=== PATIENT | male | born 1965 ===

== ENCOUNTER 2019-11-28 13:56 | Observation (INO) | payer MEDICAID, OTHER ==
[2019-11-28] MEDS ORDERED: Morphine 4 MG/ML VIAL (1 ml) 4 MG/ML VIAL IV ONE (14:02)
--- NOTE | 2019-11-28 14:05 | ED ---
HPI Chest Pain - HPI Summary HPI Summary: 54 year old M presenting to [facility] via EMS with a chief complaint of constant central chest pain since 2 days ago. The patient rates the pain 7/10 in severity. Symptoms aggravated by nothing. Symptoms alleviated by nitro. Patient reports radiation of his pain to his left jaw and left arm this morning, diaphoresis last night, dizziness, and lightheadedness. Per EMS the patient's 12 lead EKG was unremarkable, he was given 1 L of fluid, and his pain was slightly relieved by 2 nitros. The patient has a history of 2 UT's and stents. He denies any history of DVT. The patient has a history of diabetes, hypertension, and high cholesterol. He has a family history of UT. Medication list reviewed. Allergy list reviewed. Home Medications Medication Instructions Recorded Confirmed Type Albuterol HFA INHALER* [Ventolin 2 puff INH Q6H PRN 11/28/19 11/28/19 History HFA Inhaler*] Aspirin EC TAB* [Ecotrin EC Low 81 mg PO DAILY 11/28/19 11/28/19 History Dose 81 MG*] Atorvastatin* [Lipitor*] 40 mg PO QPM 11/28/19 11/28/19 History Calcium Polycarbophil TAB* 625 mg PO BID 11/28/19 11/28/19 History [Fibercon TAB*] Clopidogrel TAB* [Plavix TAB*] 75 mg PO DAILY 11/28/19 11/28/19 History Insulin Glargine,Hum.rec.anlog 15 unit SUBCUT QPM 11/28/19 11/28/19 History [Lantus 100 units/ml 10 ml VIAL (*)] Metoprolol Tartrate TAB* 25 mg PO BID 11/28/19 11/28/19 History [Lopressor TAB*] Nitroglycerin TAB 0.4 MG* 0.4 mg SL Q5M PRN 11/28/19 11/28/19 History Omeprazole CAP (NF) [Prilosec CAP* 20 mg PO DAILY 11/28/19 11/28/19 History 20 MG] Tamsulosin CAP* [Flomax CAP*] 0.4 mg PO BEDTIME 11/28/19 11/28/19 History amLODIPine TAB* [Norvasc 5 mg TAB*] 2.5 mg PO QPM 11/28/19 11/28/19 History metFORMIN* [Glucophage 1000 MG TAB 1,000 mg PO BID 11/28/19 11/28/19 History *] - History of Current Complaint Hx Obtained From: Patient, EMS Onset/Duration: Started Days Ago Timing: Constant Current Severity: Moderate Pain Intensity: 7 Pain Scale Used: 0-10 Numeric Chest Pain Location: Discrete at: - Center Chest Pain Radiates: Yes Chest Pain Radiates To:: Arm - Left, Jaw - Left Aggravating Factor(s): Nothing Alleviating Factor(s): Medication - Nitro, Other: Associated Signs and Symptoms: Positive: Dizziness, Lightheadedness, Diaphoresis - Allergy/Home Medications Allergies/Adverse Reactions: Allergies Allergy/AdvReac Type Severity Reaction Status Date / Time Fish Containing Products Allergy Hives Verified 11/28/19 14:10 Home Medications: Home Medications Albuterol HFA INHALER* [Ventolin HFA Inhaler*] 2 puff INH Q6H PRN 11/28/19 [ History Confirmed 11/28/19] Aspirin EC TAB* [Ecotrin EC Low Dose 81 MG*] 81 mg PO DAILY 11/28/19 [History Confirmed 11/28/19] Atorvastatin* [Lipitor*] 40 mg PO QPM 11/28/19 [History Confirmed 11/28/19] Calcium Polycarbophil TAB* [Fibercon TAB*] 625 mg PO BID 11/28/19 [History Confirmed 11/28/19] Clopidogrel TAB* [Plavix TAB*] 75 mg PO DAILY 11/28/19 [History Confirmed ] Insulin Glargine,Hum.rec.anlog [Lantus 100 units/ml 10 ml VIAL (*)] 15 unit SUBCUT QPM 11/28/19 [History Confirmed 11/28/19] Metoprolol Tartrate TAB* [Lopressor TAB*] 25 mg PO BID 11/28/19 [History Confirmed 11/28/19] Nitroglycerin TAB 0.4 MG* 0.4 mg SL Q5M PRN 11/28/19 [History Confirmed 11/28/19 ] Omeprazole CAP (NF) [Prilosec CAP* 20 MG] 20 mg PO DAILY 11/28/19 [History Confirmed 11/28/19] Tamsulosin CAP* [Flomax CAP*] 0.4 mg PO BEDTIME 11/28/19 [History Confirmed ] amLODIPine TAB* [Norvasc 5 mg TAB*] 2.5 mg PO QPM 11/28/19 [History Confirmed ] metFORMIN* [Glucophage 1000 MG TAB *] 1,000 mg PO BID 11/28/19 [History Confirmed 11/28/19] PMH/Surg Hx/FS Hx/Imm Hx Endocrine/Hematology History: Reports: Hx Diabetes Cardiovascular History: Reports: Hx Hypercholesterolemia, Hx Hypertension, Hx Myocardial Infarction Denies: Hx Deep Vein Thrombosis - Surgical History Surgical History: Yes Surgery Procedure, Year, and Place: Stents Infectious Disease History: No Infectious Disease History: Denies: Traveled Outside the [place] in Last 30 Days - Family History Known Family History: Positive: Other - UT - Social History Alcohol Use: None Substance Use Type: Reports: None Smoking Status (MU): Light Every Day Tobacco Smoker Review of Systems Positive: Skin Diaphoresis Positive: Chest Pain Neurological/Mental Status: Other - Dizziness; lightheadedness All Other Systems Reviewed And Are Negative: Yes Physical Exam - Summary Physical Exam Summary: Constitutional: Well-developed, Well-nourished, Alert. (-) Distressed Skin: Warm, Dry HENT: Normocephalic; Atraumatic Eyes: Conjunctiva normal Neck: Musculoskeletal ROM normal neck. (-) JVD, (-) Stridor, (-) Tracheal deviation Cardio: Rhythm regular, rate normal, Heart sounds normal; Intact distal pulses; Radial pulses are 2+ and symmetric. (-) Murmur Pulmonary/Chest wall: Effort normal. (-) Respiratory distress, (-) Wheezes, (-) Rales Abd: Soft, (-) tenderness, (-) Distension, (-) Guarding, (-) Rebound Musculoskeletal: (-) Edema Lymph: (-) Cervical adenopathy Neuro: Alert, Oriented x3 Psych: Mood and affect Normal Triage Information Reviewed: Yes Vital Signs On Initial Exam: Initial Vitals Temp Pulse Resp BP Pulse Ox 97.8 F 60 17 107/62 97 11/28/19 13:57 11/28/19 13:57 11/28/19 13:57 11/28/19 13:57 11/28/19 13:57 Vital Signs Reviewed: Yes Procedures - Sedation Patient Received Moderate/Deep Sedation with Procedure: No Diagnostics - Vital Signs Vital Signs Temp Pulse Resp BP Pulse Ox 11/28/19 13:57 97.8 F 60 17 107/62 97 - Laboratory Result Diagrams: 11/28/19 14:09 11/28/19 14:09 Lab Statement: Any lab studies that have been ordered have been reviewed, and results considered in the medical decision making process. - Radiology Chest x-ray Radiology Interpretation Completed By: Radiologist Summary of Radiographic Findings: No active cardiopulmonary disease is noted. ED physician has reviewed this report. - EKG 14:28 Cardiac Rate: Bradycardia - 57 BPM EKG Rhythm: Sinus Bradycardia Summary of EKG Findings: Q-Waves in inferior leads; no ischemic changes. ED physician has reviewed and interpreted this EKG. Chest Pain Course/Dx - Course Course Of Treatment: Patient is here with chest pain. Patient typical and atypical features of chest pain. Patient's pain did get worse with exertion goes to left arm and jaw but has been present for 2 days. Patient has had 2 MIs in the past with a possible stress test in the past year but he cannot confirm that. Patient has an EKG which shows no changes from baseline. Patient had negative troponin. Patient has a well score of 0 for PE. Asians sore is not consistent with aortic dissection. The long term was called and they cannot find any records of a stress test in the past year. Given patient's heart score 4 in no known stress test in the past 12 months, patient was admitted to the hospital - Diagnoses Provider Diagnoses: Chest pain - Provider Notifications Discussed Care Of Patient With: Camilo Garcia Time Discussed With Above Provider: 15:40 Instructed by Provider To: Other - Patient's case was discussed with Dr. Garcia, Dr. Garcia accepts for admission Discharge ED - Sign-Out/Discharge Documenting (check all that apply): Patient Departure - Discharge Plan Condition: Stable Disposition: ADMITTED TO [facility] - Billing Disposition and Condition Condition: STABLE Disposition: Admitted to [facility] - Attestation Statements Document Initiated by Scribe: Yes Documenting Scribe: Danae Shankar Provider For Whom Scribe is Documenting (Include Credential): Winston Spann MD Scribe Attestation: Danae Mena, scribed for Winston Spann MD on at 2335. Scribe Documentation Reviewed: Yes Provider Attestation: The documentation as recorded by the scribe, Danae Ruiz and Dirk Shankar accurately reflects the service I personally performed and the decisions made by me, Winston Spann MD Status of Scribe Document: Viewed
[2019-11-28 14:28] LABS: ABS Eosinophils 0.1 10^3/ul (0-0.6); ABS Lymphocytes 1.3 10^3/ul (1.0-4.8); ABS Monocytes 0.5 10^3/ul (0-0.8); ABS Neutrophils 4.4 10^3/ul (1.5-7.7); Eosinophil % 2.2 %; Hematocrit 37 % (42-52); Hemoglobin 12.5 g/dL (14.0-18.0); Lymphocyte % 20.7 %; Mean Corpuscular HGB Conc 34 g/dL (31-36); Mean Corpuscular Hemoglobin 29 pg (27-31); Mean Corpuscular Volume 88 fL (80-94); Mean Platelet Volume 7.7 fL (7.4-10.4); Nucleated Red Blood Cells % 0.1; Platelet Count 167 10^3/uL (150-450); Red Blood Count 4.26 10^6 /uL (4.18-5.48); Red Cell Distribution Width 14 % (10-15); White Blood Count 6.5 10^3/uL (3.5-10.8)
[2019-11-28 15:04] LABS: Albumin 3.7 g/dL (3.2-5.2); Albumin/Globulin Ratio 1.5 (1-3); BUN/Creatinine Ratio 11.5 (8-20); Calcium 8.4 mg/dL (8.6-10.3); EGFR African American 99.1 (>60); EGFR Non-African American 81.9 (>60); Globulin 2.4 g/dL (2-4); Potassium 4.5 mmol/L (3.5-5.0); Total Bilirubin 0.7 mg/dL (0.2-1.0); Total Protein 6.1 g/dL (6.4-8.9)
[2019-11-28] MEDS ORDERED: Acetaminophen TAB* 325 MG PO PRN (16:11)
[2019-11-28] MEDS ORDERED: Nitroglycerin TAB 0.4 MG* 0.4 MG TAB SL PRN (16:13)
[2019-11-28] MEDS ORDERED: Albuterol HFA INHALER* 8 gm MDI INH PRN (16:13)
[2019-11-28] MEDS ORDERED: Dextrose 50% Syringe 50 ML* 25 GM/50 ML SYRINGE IV PUSH PRN (16:29)
[2019-11-28] MEDS ORDERED: Enoxaparin(*) 40 MG/0.4 ML SYR SUBCUT SCH (17:00)
[2019-11-28] MEDS ORDERED: amLODIPine TAB* 5 MG PO SCH (18:00)
[2019-11-28] MEDS ORDERED: Atorvastatin* 40 MG TAB PO SCH (18:00)
[2019-11-28] MEDS ORDERED: Insulin GLARGINE(*) 1 UNITS UNIT SUBCUT SCH (18:00)
--- NOTE | 2019-11-28 19:27 | HP ---
CC: Dr. Malcolm Diaz, [facility] * HISTORY AND PHYSICAL: DATE OF ADMISSION: 11/28/19 PRIMARY CARE PROVIDER: Dr. Malcolm Diaz, [facility]. ATTENDING PHYSICIAN: Dr. Camilo Garcia * (dictated by ERIS Savage). CHIEF COMPLAINT: Chest pain. HISTORY OF PRESENT ILLNESS: Mr. Pang is a 54-year-old male with a past medical history of coronary artery disease, status post 2 stents; diabetes, insulin- dependent; hypertension; hyperlipidemia, who presented to the ER today with complaints of chest pain that radiates to the left jaw and left arm. He reports that the pain is constant for the last 2 days, but worsened this morning after eating and walking to his room. He states he got to his room and had to sit down due to worsening chest pain. He has been given nitro and morphine both of which helped some. He rates this pain as a 6/10 currently. He states that his pain is nonpleuritic, not associated with deep breathing or palpation. He reports nausea last night without emesis, which has since subsided. Incidentally, he does have a history of swallowing foreign bodies, last episode was 6 to 7 months ago. Calculated HEART score is 4. He denies cough, shortness of breath, diaphoresis. He has some mild abdominal pain which is constant and he reports is due to hernia. Denies nausea, vomiting, diarrhea, myalgias, arthralgias. In the ER, the patient received a full workup, has a mild normocytic anemia, CMP shows 129 glucose, calcium 8.4. EKG shows rate of 57 with evidence of an old infarct in the inferior leads, flat T-wave in lead III and aVF. No ST depression or elevation. No previous EKG to compare to. Chest x-ray was unremarkable. The hospitalist team was asked to evaluate the patient for admission. PAST MEDICAL HISTORY: 1. Coronary artery disease, status post NC x2, stenting x2. 2. Diabetes mellitus, insulin-dependent. 3. Hypertension. 4. Hyperlipidemia. 5. GERD. 6. BPH. PAST SURGICAL HISTORY: Cardiac stent x2, appendectomy, multiple foreign body removals, colostomy with reversal. HOME MEDICATIONS: 1. Albuterol HFA inhaler 2 puffs inhalation q.6 hours p.r.n. 2. Amlodipine 2.5 mg p.o. daily. 3. Aspirin 81 mg p.o. daily. 4. Atorvastatin 40 mg p.o. at bedtime. 5. Calcium polycarbophil 625 mg p.o. b.i.d. 6. Clopidogrel 75 mg p.o. daily. 7. Insulin glargine 15 units subcu at bedtime. 8. Metformin 1000 mg p.o. b.i.d. 9. Metoprolol tartrate 25 mg p.o. b.i.d. 10. Nitroglycerin 0.4 mg sublingual q.5 minutes p.r.n. 11. Omeprazole 20 mg p.o. daily. 12. Tamsulosin 0.4 mg p.o. at bedtime. DRUG ALLERGIES: FISH. FAMILY HISTORY: Mom and maternal grandmother had MIs. Father from jaw cancer. No family history of CVA, diabetes. SOCIAL HISTORY: The patient is a current everyday smoker. He has smoked 40- pack years. He does not use alcohol or illicit drugs. He is not . He has no children. He currently is a prisoner at [facility]. In the event that he is unable to make his own medical decisions, he has appointed his sister, Jeimy Dasilva to be his surrogate decision maker. REVIEW OF SYSTEMS: A 14-point review of systems has been performed and all the pertinent positives and negatives are in the HPI. All other systems are negative. PHYSICAL EXAMINATION GENERAL: Mr. Pang is a well-developed, well-nourished, overweight, middle-aged white male, who is sitting up in bed. He appears to be in no acute distress. He is pleasant, cooperative and appropriate. HEENT: PERRL. EOMI. Visual esquivel are grossly intact. Sclerae are nonicteric without injection. Hearing is grossly intact. The patient has poor dentition. Oral mucous membranes are moist. There are no lesions. The pharynx is clear. The tongue is at midline. Palate elevates symmetrically. PULMONARY: Symmetrical chest expansion. No use of accessory muscles. Clear to auscultation bilaterally. No rhonchi, wheeze, or rales. CARDIOVASCULAR: Regular rate and rhythm with S1, S2 present. No murmurs, rubs , clicks, or gallops. There is no JVD or peripheral edema. ABDOMEN: Bowel sounds in all quadrants. Soft, nontender to palpation. MUSCULOSKELETAL: Full range of motion without pain or deformities. NEURO: The patient is awake. He is alert and oriented x3. Cranial nerves II through XII are grossly intact. He is able to move all of his extremities. His motor strength is 5/5 bilaterally in the upper and lower extremities. DIAGNOSTIC STUDIES/LAB DATA: 1. CBC: WBC 6.5, hemoglobin 12.5, hematocrit 37, MCV 88, platelets 167. 2. CMP: Sodium 142, potassium 4.5, chloride 111, carbon dioxide 28, BUN 11, creatinine 0.96, glucose 129, calcium 8.4, protein 6.1. Troponin 0.00 x1. 3. Chest x-ray, impression: No active cardiopulmonary disease is noted. 4. EKG: Rate 57, evidence of an old inferior wall infarct noted. There is T- wave flattening in lead III and aVF. No ST depression or elevation. ASSESSMENT AND PLAN: Mr. Pang is a 54-year-old male with a past medical history of coronary artery disease, status post stenting x2; diabetes mellitus, insulin-dependent; hypertension; hyperlipidemia, who presented to the ER today with complaints of chest pain over the last 2 days that worsened after eating and walking. The patient will be admitted for: 1. Chest pain. The patient has had 2 days of chest pain that has relieved some with morphine and nitro. In the ER, he was given morphine 4 mg IV. At this time, the patient will continue on his home aspirin and Plavix. We will repeat an EKG in the morning. Currently, he has 1 negative troponin and EKG without ST segment changes, but with some T-wave flattening. Nuclear stress test has been ordered for the morning. Hemoglobin A1c and lipid panel have been ordered. The patient has been admitted observation to the tele floor. 2. Hypertension. Continue amlodipine and metoprolol. 3. Hyperlipidemia. Continue atorvastatin. Lipid panel in the a.m. 4. Diabetes mellitus. The patient is on Lantus 15 units subcu at bedtime. I have decreased this to 10 units at bedtime. He will continue his metformin, fingersticks and lispro sliding scale coverage has been ordered. 5. Gastroesophageal reflux disease. Discontinue omeprazole in favor of pantoprazole especially in the setting of aspirin and Plavix use. 6. Benign prostatic hyperplasia. Continue tamsulosin. 7. Tobacco abuse. The patient is interested in nicotine gum; this has been ordered. 8. DVT prophylaxis: According to DVT Risk Assessment, the patient scores 2, placing him at moderate risk. He has been started on Lovenox. 9. Code status: Full code. TIME SPENT: Approximately 60 minutes was spent on this admission, greater than half that time was spent [id number] with the patient obtaining history, performing physical, and reviewing the plan of care. The case has been discussed with my attending, Dr. Garcia, who is in agreement with the plan of care. ERIS REYNOLDS [id number]/CPS #: [id number] ELA
[2019-11-28] MEDS: Insulin LISPRO* 1 UNITS UNIT SUBCUT SCH (19:56)
[2019-11-28] MEDS: Nicotine* 2MG (FRUIT FLAVOR) GUM PO PRN (20:22)
[2019-11-28] MEDS: Calcium Polycarbophil TAB* 625 MG PO SCH (20:24)
[2019-11-28] MEDS: metFORMIN* 1,000 MG TAB PO SCH (20:24)
[2019-11-28] MEDS ORDERED: Tamsulosin CAP* 0.4 MG PO SCH (21:00)
[2019-11-28] MEDS: Metoprolol Tartrate TAB* 25 MG PO SCH (21:51)
[2019-11-28] MEDS ORDERED: Morphine INJ* 2 MG/ML 1 ML SYRINGE (TWO MG - NEW SYRINGE VERSION) IV ONE (22:45)
[2019-11-29] MEDS ORDERED: Regadenoson* 0.4 MG/5 ML SYRINGE ONE (07:51)
[2019-11-29] MEDS: Insulin LISPRO* 1 UNITS UNIT SUBCUT SCH ×2 (07:55→12:45)
[2019-11-29 08:10] LABS: HDL Cholesterol 37.9 mg/dL
[2019-11-29] MEDS: Calcium Polycarbophil TAB* 625 MG PO SCH (08:22)
[2019-11-29] MEDS: metFORMIN* 1,000 MG TAB PO SCH (08:22)
[2019-11-29] MEDS ORDERED: Clopidogrel TAB* 75 MG PO SCH (09:00)
[2019-11-29] MEDS ORDERED: Aspirin EC TAB* 81 MG TAB.EC PO SCH (09:00)
[2019-11-29] MEDS ORDERED: Pantoprazole TAB * 40 MG TAB PO SCH (09:00)
[2019-11-29] MEDS: Metoprolol Tartrate TAB* 25 MG PO SCH (10:00)
--- NOTE | 2019-11-29 11:19 | CONSULT ---
Subjective Date of Service: 11/29/19 Interval History: Admission Date: 11/28/19 Consult date 11/29/2019 Provider: Hospitalist PCP [facility] CC: chest pain Reason for consult: chest pain HISTORY OF PRESENT ILLNESS: Mr. Pang is a 54-year-old man who has been institutionalized for 33 years with a history as below. Due to [facility] care home system records and patients suboptimal historian, a precisely accurate history is not obtainable. He is not sure of the facilities that any of these events happened at. He tells me he has chronic pain of chest and back from a fall years ago and uses a cane. There were no surgeries and he would not elaborate on the incident. He also has had multiple suicide attempts by ingesting various things such as batteries and razor blades. His last attempt was May of last year and he had multiple EGD retrievals, bowel injury, laparotomy and ostomy for a period of time. He also had an NH about 9 years ago. He could not be very specific about the symptoms at the time or the location of these events. He states he had another NH after that unsure when. He thinks stents were placed. He is now admitted with about 2 days of chest, left neck, left arm and right posterior shoulder discomfort. The pain is sometimes on left and sometimes on right of chest. He was given a NTG this AM and there was no relief. IV narcotics are the only thing that have temporarily relieved pain. There is no clear aggravating factor. He tells me this pain has been an ongoing issue and he has had at least 4 stress tests since the heart attack to evaluate and has been told PAST MEDICAL HISTORY: 1. Coronary artery disease, status post NH 2. Diabetes mellitus, insulin-dependent. 3. Hypertension. 4. Hyperlipidemia. 5. GERD. 6. BPH. PAST SURGICAL HISTORY: Probable PCI appendectomy multiple foreign body removals colostomy with reversal. DRUG ALLERGIES: FISH. FAMILY HISTORY: Mom and maternal grandmother had MIs. Father from jaw cancer. No family history of CVA, diabetes. SOCIAL HISTORY: The patient is a current everyday smoker. He has smoked 40- pack years. He does not use alcohol or illicit drugs. He is not . He has no children. He currently is a prisoner at [facility]. In the event that he is unable to make his own medical decisions, he has appointed his sister, Jeimy Dasilva to be his surrogate decision maker. Medications Active Medications: Acetaminophen (Tylenol Tab*) 650 mg PO Q4H PRN PRN Reason: mild to moderate pain Albuterol (Ventolin Hfa Inhaler*) 2 puff INH Q6H PRN PRN Reason: SHORTNESS OF BREATH Amlodipine Besylate (Norvasc Tab*) 2.5 mg PO QPM [facility] Last Admin: 11/28/19 20:13 Dose: Not Given Aspirin (Aspirin Ec Tab*) 81 mg PO DAILY [facility] Last Admin: 11/29/19 08:21 Dose: 81 mg Atorvastatin Calcium (Lipitor*) 40 mg PO QPM [facility] Last Admin: 11/28/19 20:24 Dose: 40 mg Calcium Polycarbophil (Fibercon Tab*) 625 mg PO BID [facility] Last Admin: 11/29/19 08:22 Dose: 625 mg Clopidogrel Bisulfate (Plavix Tab*) 75 mg PO DAILY [facility] Last Admin: 11/29/19 08:22 Dose: 75 mg Dextrose (D50w Syringe 50 Ml*) 12.5 gm IV PUSH .FOR FS < 60 - SS PRN PRN Reason: FS < 60 Enoxaparin Sodium (Lovenox(*)) 40 mg SUBCUT Q24H [facility] Last Admin: 11/28/19 20:22 Dose: 40 mg Insulin Glargine (Lantus(*)) 10 units SUBCUT QPM [facility] Last Admin: 11/28/19 21:50 Dose: 10 units Insulin Human Lispro (Humalog*) 0 units SUBCUT AC [facility]; Protocol Last Admin: 11/29/19 07:55 Dose: Not Given Metformin HCl (Glucophage*) 1,000 mg PO BID [facility] Last Admin: 11/29/19 08:22 Dose: 1,000 mg Metoprolol Tartrate (Lopressor Tab*) 25 mg PO BID [facility] Last Admin: 11/29/19 10:00 Dose: Not Given Nicotine Polacrilex (Nicotine Gum*) 2 mg PO Q2H PRN PRN Reason: CRAVING Last Admin: 11/28/19 20:22 Dose: 2 mg Nitroglycerin (Nitroglycerin Tab 0.4 Mg*) 0.4 mg SL Q5M PRN PRN Reason: chest pain Last Admin: 11/29/19 08:23 Dose: 0.4 mg Pantoprazole Sodium (Protonix Tab*) 40 mg PO DAILY [facility] Last Admin: 11/29/19 08:22 Dose: 40 mg Tamsulosin HCl (Flomax Cap*) 0.4 mg PO BEDTIME [facility] Last Admin: 11/28/19 20:24 Dose: 0.4 mg Home Medications: Albuterol HFA INHALER* [Ventolin HFA Inhaler*] 2 puff INH Q6H PRN 11/28/19 [ History Confirmed 11/28/19] Aspirin EC TAB* [Ecotrin EC Low Dose 81 MG*] 81 mg PO DAILY 11/28/19 [History Confirmed 11/28/19] Atorvastatin* [Lipitor*] 40 mg PO QPM 11/28/19 [History Confirmed 11/28/19] Calcium Polycarbophil TAB* [Fibercon TAB*] 625 mg PO BID 11/28/19 [History Confirmed 11/28/19] Clopidogrel TAB* [Plavix TAB*] 75 mg PO DAILY 11/28/19 [History Confirmed ] Insulin Glargine,Hum.rec.anlog [Lantus 100 units/ml 10 ml VIAL (*)] 15 unit SUBCUT QPM 11/28/19 [History Confirmed 11/28/19] Metoprolol Tartrate TAB* [Lopressor TAB*] 25 mg PO BID 11/28/19 [History Confirmed 11/28/19] Nitroglycerin TAB 0.4 MG* 0.4 mg SL Q5M PRN 11/28/19 [History Confirmed 11/28/19 ] Omeprazole CAP (NF) [Prilosec CAP* 20 MG] 20 mg PO DAILY 11/28/19 [History Confirmed 11/28/19] Tamsulosin CAP* [Flomax CAP*] 0.4 mg PO BEDTIME 11/28/19 [History Confirmed ] amLODIPine TAB* [Norvasc 5 mg TAB*] 2.5 mg PO QPM 11/28/19 [History Confirmed ] metFORMIN* [Glucophage 1000 MG TAB *] 1,000 mg PO BID 11/28/19 [History Confirmed 11/28/19] Review of Systems - Measurements Intake and Output: Intake and Output Last 24 Hours 11/27/19 11/28/19 11/29/19 11/30/19 06:59 06:59 06:59 06:59 Intake Total 960 Output Total 0 Balance 960 Weight 177 lb 6.4 oz Intake: Oral 960 Output: Urine 0 - Review of Systems Constitutional Symptoms: Negative: Weight Gain, Weight Loss, Weakness, Fatigue, Fever, Night Sweats, Unexplained Falls Dermatology: Negative: Rash, Skin Lesions HEENT: Negative: Change in Hearing, Vertigo Eyes: Negative: Change in Vision, Double Vision Thyroid: Negative: Palpitations, Weight Loss, Weight Gain Pulmonary: Negative: Shortness of Breath, Asthma, Home Oxygen Cardiology: Positive: Chest Pain Negative: Shortness of Breath, Palpitations, Swelling of Ankles, Peripheral Vascular Dis, Edema, Syncope, Paroxysmal Nocturnal Dyspnea, Orthopnea Gastroenterology: Positive: Abdominal Pain Negative: Blood in Stools, Haematemesis, Melena Genital - Urinary: Negative: Dysuria, Hematuria Musculoskeletal: Negative: Joint Pain, Joint Stiffness Endocrinology: Positive: Obesity, Diabetes Negative: Hypoglycemia, Polydipsia, Polyuria Hematologic/Lymphatic: Positive: Use of Antiplatelet Drugs Negative: Hx Leukemia, Hx Lymphoma, Use of Anticoagulant Neurology: Negative: Normal, Hx of Stroke\TIA, Hx Seizures Psychiatry: Negative: Unusual Anxiety, Suicidal Ideation Allergic/Immunologic: Negative: Hx HIV, Immunocompromise Review of Systems Statement: All other review of systems negative, unless stated above. Objective Vital Signs: Temp Pulse Resp BP Pulse Ox 96.6 F 55 16 103/70 97 11/29/19 07:15 11/29/19 07:15 11/29/19 07:15 11/29/19 10:22 11/29/19 07:15 Oxygen Devices in Use Now: None Appearance: nc/at Ears/Nose/Mouth/Throat: Clear Oropharnyx, Mucous Membranes Moist Neck: NL Appearance and Movements; NL JVP, Trachea Midline Respiratory: Symmetrical Chest Expansion and Respiratory Effort, Clear to Auscultation Cardiovascular: RRR, No Edema Abdominal: NL Sounds; No Tenderness; No Distention, - - multiple surgical scars noted Extremities: No Edema, No Clubbing, Cyanosis Skin: No Rash or Ulcers Neurological: Alert and Oriented x 3 Laboratory Results: 11/28/19 14:09 11/28/19 14:09 Total Bilirubin 0.70 mg/dL (0.2-1.0) 11/28/19 14:09 AST 19 U/L (13-39) 11/28/19 14:09 ALT 22 U/L (7-52) 11/28/19 14:09 Alkaline Phosphatase 81 U/L (34-104) 11/28/19 14:09 Total Protein 6.1 g/dL (6.4-8.9) L 11/28/19 14:09 Albumin 3.7 g/dL (3.2-5.2) 11/28/19 14:09 Globulin 2.4 g/dL (2-4) 11/28/19 14:09 Albumin/Globulin Ratio 1.5 (1-3) 11/28/19 14:09 Triglycerides 131 mg/dL 11/29/19 06:05 Cholesterol 103 mg/dL 11/29/19 06:05 LDL Cholesterol 39 mg/dL 11/29/19 06:05 HDL Cholesterol 37.9 mg/dL 11/29/19 06:05 11/28/19 11/28/19 11/28/19 14:09 17:08 20:17 Troponin I 0.00 0.01 0.00 Hgba1c 6.2 Diagnostic Imaging: Exam Date: 11/28/19 CHEST PA & LAT 2 VWS 2 views of the chest including dual energy PA views demonstrate no mediastinal shift. Heart is of normal size and configuration. Lung esquivel show no pleural fluid, pneumonia or pneumothorax. EKG Data: ekg admission and today sinus bradycardia/rhythm old inferior NH, no ischemic changes Stress MPI reviewed: Small to medium sized inferior infarct with mild veronica- infarct ischemia Assessment/Plan Ongoing unremitting discomfort for days with serial normal troponins and no ischemic EKG changes essentially excludes myocardial ischemia for this particular discomfort. Patient needs aggressive secondary prevention including but not limited to a healthy diet for diabetes control and smoking cessation to reduce the risk (even in the short term) of things including but not limited to heart attack and . He expressed understanding of this.
[2019-11-29 11:36] VITALS: BP 110/60
[2019-11-29] MEDS: Nicotine* 2MG (FRUIT FLAVOR) GUM PO PRN (11:36)
--- NOTE | 2019-11-29 16:38 | DS ---
DISCHARGE SUMMARY: DATE OF ADMISSION: 11/28/19 DATE OF DISCHARGE: 11/29/19 PROVIDER: ERIS Hussein ATTENDING PHYSICIAN WHILE IN THE HOSPITAL: Dr. Henderson * (dictated by ERIS Hussein). PRIMARY CARE PROVIDER: Dr. Julio Diaz, [facility]. PRIMARY DIAGNOSIS: Chest pain, noncardiac. SECONDARY DIAGNOSES: 1. Coronary artery disease, status post myocardial infarction x2 and stenting x2. 2. Diabetes mellitus type 2. 3. Hypertension. 4. Hyperlipidemia. 5. Gastroesophageal reflux disease. 6. Benign prostatic hyperplasia. 7. Depression and anxiety. PERTINENT STUDIES WHILE IN THE HOSPITAL: Chest x-ray on 11/28/19, impression: No active cardiopulmonary disease is noted. Nuclear medicine stress test, impression: Fixed defect of the inferior wall towards the base which may reflect previous infarct. No definite reversibility. Assessment, low risk. PERTINENT LABS WHILE IN THE HOSPITAL: Troponin 0.00, 0.01, 0.00. Hemoglobin A1c is 6.2. LDL 39. HISTORY OF PRESENT ILLNESS/HOSPITAL COURSE: Mr. Pang is a 54-year-old black male with past medical history significant for coronary artery disease with prior VT, diabetes mellitus type 2, hypertension, hyperlipidemia, BPH, GERD, anxiety and depression, who presents to the emergency department from [facility] due to chest pain that has been persistent for 2 days, worsening when he was eating. The patient received morphine and nitroglycerin while he was in the hospital, which did help with his pain and he was admitted to the hospital for an ACS workup. The patient had negative troponins on 3 readings and had no ischemic changes concerning for ACS. His EKG did demonstrate Q-waves in the inferior leads consistent with his prior VT. He had a stress test demonstrating prior infarct on the inferior wall again consistent with his prior VT. This nuclear scan was reviewed by our computed tomography technician, Dr. Elan Andres, who agreed that this was representing with his old VT and had no concern for ACS at this time and did not believe the cause of his chest pain was cardiac. The patient did still have persistent chest pain on date of discharge; however, ACS has been ruled out. He and I did discuss this and he did believe that his anxiety was feeling worsening over the last few weeks and he does agree that this is possibly related to his anxiety. He does tell me that he is currently in a mental health unit at [facility] and that he has daily encounters with therapist and is followed by a psychiatrist. For unclear reasons, his psychiatric medications were not sent along with him in addition to his other medications from the medical office at [facility] and I have obtained these prescriptions and I added them to the medication list in his electronic chart. He maintained overall good blood pressures, though he did have low blood pressure after administration of nitroglycerin, which is likely due to the effect on his preload and this hypertension resolved after being given IV fluids. He was without dizziness, lightheadedness, shortness of breath, severe abdominal pain, or edema. He did tell me that the pain radiated down his left arm at times as well. PHYSICAL EXAM AT DAY OF DISCHARGE: General: Overweight black male, who appears older than stated age, lying in hospital bed, appearing comfortable, in no acute distress. Eyes: PERRLA. Sclerae anicteric. ENT: Mucous membranes are moist. Lungs: Clear to auscultation throughout. Cardio: Regular rate and rhythm without murmurs, rubs, or gallops. No tenderness to palpation in anterior chest. Abdomen: Soft, nontender, nondistended. Extremities: No clubbing, cyanosis, or edema. Musculoskeletal: Range of motion in the left shoulder full. No tenderness to palpation throughout the left shoulder. Neuro : The patient is alert and oriented x3. DISCHARGE PLAN: DISCHARGE INSTRUCTIONS: I have advised the patient to discuss that possibly these symptoms are related to increased anxiety and that his medications should probably be adjusted. He is advised to follow up with the psychiatrist that sees him at [facility]. It does appear that his Zoloft has recently been increased within the last few weeks and perhaps an additional increase or an adjunctive medication would be of benefit to him or increasing the frequency of his p.r.n. Vistaril. He is advised to return to the emergency department for severe pain of his chest especially associated with his difficulty breathing, dizziness, lightheadedness and please return to the emergency department for loss of consciousness or severe abdominal pain. The patient additionally is advised to quit smoking in order to risk his recurrence of VT in the future. DISCHARGE DIET: Heart healthy diet. DISCHARGE ACTIVITY: The patient may return to normal activities as tolerated. DISCHARGE MEDICATIONS: New medications: None. Continued home medications: 1. Vistaril 200 mg p.o. q.p.m. 2. Vistaril 50 mg p.o. q.a.m. 3. Zoloft 150 mg p.o. daily. 4. Flomax 0.4 mg p.o. at bedtime. 5. Insulin glargine 15 units subcu q.p.m. 6. Metformin 1000 mg p.o. b.i.d. 7. Nitroglycerin 0.4 mg sublingual q.5 minutes p.r.n. angina. 8. FiberCon 625 mg p.o. b.i.d. 9. Albuterol inhaler 2 puffs inhaled q.6 hours p.r.n. shortness of breath/ wheezing. 10. Omeprazole 20 mg p.o. daily. 11. Plavix 75 mg p.o. daily. 12. Lipitor 40 mg p.o. q.p.m. 13. Amlodipine 2.5 mg p.o. q.p.m. 14. Metoprolol tartrate 25 mg p.o. b.i.d. 15. Aspirin 81 mg p.o. daily. CONDITION ON DISCHARGE: Stable. DISPOSITION: Home. TIME SPENT: Approximately 40 minutes was spent on this discharge, approximately half of this time was spent at bedside evaluating the patient and discussing the plan of care. ERIS HUSSEIN [id number]/CPS #: [id number] MTDD
== END 2019-11-29 15:00 ==
LOC: ED 13:56 → MEDTELE 16:11
PROVIDERS: ADMIT Physician Assistant Medical; ATTEND Internal Medicine
DX: R07.89 Other chest pain (principal); I25.10 Atherosclerotic heart disease of native coronary artery without angina pectoris; I25.2 Old myocardial infarction; Z95.5 Presence of coronary angioplasty implant and graft; E11.9 Type 2 diabetes mellitus without complications; Z79.4 Long term (current) use of insulin; I10 Essential (primary) hypertension; E78.5 Hyperlipidemia, unspecified; E78.00 Pure hypercholesterolemia, unspecified; K21.9 Gastro-esophageal reflux disease without esophagitis; N40.0 Benign prostatic hyperplasia without lower urinary tract symptoms; F32.9 Major depressive disorder, single episode, unspecified; F41.9 Anxiety disorder, unspecified; Z79.82 Long term (current) use of aspirin; Z79.899 Other long term (current) drug therapy; Z79.01 Long term (current) use of anticoagulants; F17.210 Nicotine dependence, cigarettes, uncomplicated; R94.31 Abnormal electrocardiogram [ECG] [EKG]
CPT/HCPCS: 36415; 71046; 78452; 80053; 80061; 83036; 84484; 85025; 93005; 93017; 96372; 96374; 96376; 99284; A9270-GY; A9502; G0378; J1650; J2270; J2785